=== PATIENT | male | born 1935 | race Hispanic/Latino ===

== ENCOUNTER 2016-11-19 17:41 | Observation (INO) | payer MEDICARE ==
[2016-11-19 17:41] VITALS: PULSE 93
--- NOTE | 2016-11-19 17:57 | ED PDOC ---
Arrival/HPI - General Time Seen by Provider: 11/19/16 17:44 Historian: Patient - History of Present Illness Narrative History of Present Illness (Text): 11/19/16 17:49 A 81 year old male, whose past medical history includes afib on Eliquis, COPD and Crohn's disease, presents to the emergency department complaining of worsening shortness of breath since yesterday. Patient states his symptom is exacerbated on exertion. Patient notes nausea and mild lower abdominal discomfort but denies any fever, chills, vomiting, diarrhea, chest pain, cough or any other complaints. PMD: Dr. Bello [facility] Laboratory Specialist: Dr. Cheung Time/Duration: Other (yesterday) Symptom Course: Worsening Quality: Other Context: Home Past Medical History - Provider Review Nursing Documentation Reviewed: Yes - Infectious Disease Hx of Infectious Diseases: None - Tetanus Immunization Tetanus Immunization: Unknown - Cardiac Hx Cardiac Arrhythmia: Yes (a fib) Hx Hypertension: Yes Hx Pacemaker: No - Pulmonary Hx Asthma: Yes Hx Bronchitis: Yes Hx Chronic Obstructive Pulmonary Disease (COPD): Yes Hx Pneumonia: Yes (10 yrs ago) - Neurological Hx Dizziness: Yes (vertigo) - HEENT Hx HEENT Disorder: Yes (eyeglasses) Hx Blind: No Hx Cataracts: No Hx Deafness: Yes (refuses hearing aids) Hx Difficulty Chewing: No Hx Epistaxis: No Hx Glaucoma: No Hx Macular Degeneration: No - Renal Hx Renal Disorder: No Hx Kidney Stones: Yes (lithotripsy 3/4 yrs ago) Hx Renal Failure: No - Endocrine/Metabolic Hx Endocrine Disorders: No Hx Diabetes Mellitus Type 1: No Hx Diabetes Mellitus Type 2: No Hx Hypothyroidism: No - Hematological/Oncological Hx Blood Disorders: No Hx Cancer: Yes (skin R forehead area frozen 1 1/2 yr ago) - Integumentary Hx Dermatological Disorder: Yes (Skin Cancer 3 years ago, skin area frozen) Hx Basal Cell Carcinoma: No Hx Eczema: No Hx Melanoma: No Hx Psoriasis: No Hx Squamous Cell Carcinoma: No - Musculoskeletal/Rheumatological Hx Arthritis: Yes Hx Falls: No Hx Gout: Yes (1 yr ago) Hx Unsteady Gait: Yes (cane and one person assist) - Gastrointestinal Hx Gastrointestinal Disorders: No Hx Colostomy: Yes (ileostomy) Hx Crohn's Disease: No Hx Diverticulitis: Yes Hx Gall Bladder Disease: Yes (Gallbladder Removed 1964) Hx Gastroesophageal Reflux: Yes (10 years ago) Hx Gastrointestinal Ulcer: No Hx Ileostomy: Yes Hx Liver Failure: No Hx Pancreatitis: No HX Swallowing Problems: No Other/Comment: ulcerative colitis, irritable bowel, 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 - Genitourinary/Gynecological Hx Genitourinary Disorders: No Hx Hematuria: No Hx Incontinence: No Hx Prostate Problems: No Hx Sexually Transmitted Diseases: No Hx Urinary Tract Infection: No - Psychiatric Hx Psychophysiologic Disorder: No Hx Anxiety: No Hx Bipolar Disorder: No Hx Depression: No Hx Emotional Abuse: No Hx Hallucinations: No Hx Panic Disorder: No Hx Post Traumatic Stress Disorder: No Hx Psychosis: No Hx Physical Abuse: No Hx Schizophrenia: No Hx Sexual Abuse: No Hx Substance Use: No - Surgical History Hx Cardiac Catheterization: Yes Hx Cholecystectomy: Yes Other/Comment: 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 - Anesthesia Hx Anesthesia Reactions: No Hx Malignant Hyperthermia: No - Suicidal Assessment Feels Threatened In Home Enviroment: No Family/Social History - Physician Review Nursing Documentation Reviewed: Yes Family/Social History: No Known Family HX Smoking Status: Never Smoked Hx Alcohol Use: No Hx Substance Use: No Hx Substance Use Treatment: No Allergies/Home Meds Allergies/Adverse Reactions: Allergies No Known Allergies Allergy (Verified 11/19/16 17:53) Home Medications: Home Meds Medication Instructions Recorded Confirmed Arformoterol Tartrate [Brovana] 15 mg NEB BID 07/03/14 04/03/16 [place]-3 Fatty Acids/Fish Oil [Fish 1,000 mg PO DAILY 07/03/14 04/03/16 Oil 1,000 mg Capsule] Beclomethasone Dipropionate [Qvar 2 puff IH BID 02/07/16 04/03/16 80 mcg] Calcium Carbonate [Calcium] 600 mg PO BID 02/07/16 04/03/16 Cholecalciferol [Vitamin D] 1,000 unit PO DAILY 02/07/16 04/03/16 Sodium Bicarbonate 650 mg PO BID 02/07/16 04/03/16 Apixaban [Eliquis] 5 mg PO BID 02/09/16 04/03/16 Biotin 1,000 mg PO DAILY 03/01/16 04/03/16 Aspirin [Adult Low Dose Aspirin EC] 81 mg PO DAILY 03/06/16 04/03/16 Losartan [Cozaar] 25 mg PO DAILY 03/06/16 04/03/16 Metoprolol Tartrate [Lopressor] 100 mg PO BID 03/06/16 04/03/16 Review of Systems - Physician Review All systems were reviewed & negative as marked: Yes - Review of Systems Constitutional: absent: Fevers, Night Sweats Respiratory: SOB. absent: Cough Cardiovascular: absent: Chest Pain Gastrointestinal: Abdominal Pain (lower abdominal discomfort), Nausea. absent: Diarrhea, Vomiting Physical Exam Vital Signs Temp Pulse Resp BP Pulse Ox 11/19/16 18:20 16 94 L 11/19/16 17:50 98.4 F 75 16 131/72 94 L Temperature: Afebrile Blood Pressure: Normal Pulse: Regular Respiratory Rate: Tachypneic Appearance: Positive for: Well-Appearing Pain Distress: None Mental Status: Positive for: Alert and Oriented X 3 - Systems Exam Head: Present: Atraumatic, Normocephalic Pupils: Present: PERRL Extroacular Muscles: Present: EOMI Conjunctiva: Present: Normal Mouth: Present: Moist Mucous Membranes Pharnyx: No: ERYTHEMA, EXUDATE, TONSILS ENLARGED Neck: Present: Normal Range of Motion Respiratory/Chest: Present: Good Air Exchange, Rales (to bases bilaterally). No : Respiratory Distress, Accessory Muscle Use Cardiovascular: Present: Normal S1, S2, Irregular Rhythm. No: Murmurs Abdomen: Present: Normal Bowel Sounds, Ostomy Tubes (Colostomy bag). No: Tenderness, Distention, Peritoneal Signs Back: Present: Normal Inspection Upper Extremity: Present: Normal Inspection. No: Cyanosis, Edema Lower Extremity: Present: Normal Inspection. No: Edema, CALF TENDERNESS Neurological: Present: GCS=15, CN II-XII Intact, Speech Normal Skin: Present: Warm, Dry, Normal Color. No: Rashes Psychiatric: Present: Alert, Oriented x 3, Normal Insight, Normal Concentration Medical Decision Making ED Course and Treatment: 11/19/16 17:49 Impression: A 81 year old male with worsening shortness of breath. Tachypneic and hypoxic on arrrival. Plan: -- Chest xray -- EKG -- labs -- duonebs, steroids -- Reassess and disposition Progress Notes: EKG shows atrial fibrillation at 75 BPM. Interpreted by me. Cxray shows hyperinflation consistent with copd and mild pulmonary venous congestion. Trop x 1 negative. BNP elevated. Patient feels improved after duonebs. Patient has known chf, but this acute change is more consistent with COPD. Spoke to Dr. De Leon who accepted patient under his service for tele observation 11/19/16 20:25 - Lab Interpretations Lab Results: 11/19/16 18:15 11/19/16 18:15 Lab Results 11/19/16 18:15: PT 11.2, INR 1.04, APTT 31.7 H 11/19/16 18:15: Sodium 140, Potassium 4.1, Chloride 108 H, Carbon Dioxide 21, Anion Gap 15, BUN 17, Creatinine 0.9, Est GFR ( Amer) > 60, Est GFR (Non- Af Amer) > 60, Random Glucose 100, Calcium 9.0, Phosphorus 3.7, Magnesium 1.6 L , Total Bilirubin 1.3, AST 28, ALT 39, Alkaline Phosphatase 59, Total Creatine Kinase 91, Troponin I < 0.01, NT-Pro-B Natriuret Pep 1920 H, Total Protein 7.3, Albumin 3.9, Globulin 3.4, Albumin/Globulin Ratio 1.1 11/19/16 18:15: WBC 9.4 D, RBC 4.59, Hgb 14.5, Hct 41.5 L, MCV 90.4, MCH 31.6, MCHC 34.9, RDW 12.8, Plt Count 272, MPV 10.2, Gran % 79.8 H, Lymph % (Auto) 10.9 L, [place] % (Auto) 7.4 H, Eos % (Auto) 1.6, Baso % (Auto) 0.3, Gran # 7.49 H , Lymph # 1.0 L, [place] # 0.7 H, Eos # 0.2, Baso # 0.03 I have reviewed the lab results: Yes - RAD Interpretation Radiology Orders: 11/19/16 17:53 CHEST PORTABLE [RAD] Stat - Medication Orders Current Medication Orders: Azithromycin (Zithromax 500mg In Ns) 500 mg in 250 mls @ 167 mls/hr IVPB STAT STA PRN Reason: Protocol Stop: 11/19/16 20:57 Last Admin: 11/19/16 20:07 Dose: 167 mls/hr Discontinued Medications Albuterol/Ipratropium (Duoneb 3 Mg/0.5 Mg (3 Ml) Ud) 3 ml IH STAT STA Stop: 11/19/16 18:28 Last Admin: 11/19/16 18:32 Dose: 3 ml Aspirin (Aspirin Chewable) 324 mg PO STAT STA Stop: 11/19/16 18:27 Last Admin: 11/19/16 18:32 Dose: 324 mg Prednisone (Prednisone Tab) 60 mg PO STAT ONE Stop: 11/19/16 19:29 Last Admin: 11/19/16 20:06 Dose: 60 mg - Scribe Statement The provider has reviewed the documentation as recorded by the Andreea Tierney Provider Scribe Attestation: All medical record entries made by the Andreea were at my direction and personally dictated by me. I have reviewed the chart and agree that the record accurately reflects my personal performance of the history, physical exam, medical decision making, and the department course for this patient. I have also personally directed, reviewed, and agree with the discharge instructions and disposition. Disposition/Present on Arrival - Present on Arrival Any Indicators Present on Arrival: No History of DVT/PE: No History of Uncontrolled Diabetes: No Urinary Catheter: No History Surgical Site Infection Following: None - Disposition Have Diagnosis and Disposition been Completed?: Yes Diagnosis: COPD (chronic obstructive pulmonary disease) Disposition: HOSPITALIZED Disposition Time: 20:24 Patient Plan: Observation Patient Problems: Current Active Problems Problem Status Onset COPD (chronic obstructive pulmonary disease) Acute Condition: GOOD
[2016-11-19] MEDS ORDERED: Albuterol-Ipratrop 3 mg / 0.5 (3 ml) UD IH STA (18:27)
[2016-11-19 18:47] LABS: BASO # 0.03 K/mm3 (0.0-2.0); BASO % 0.3 % (0.0-3.0); EOS # 0.2 (0.0-0.7); EOS % 1.6 % (1.5-5.0); GRAN # 7.49 (1.4-6.5); GRAN % 79.8 % (50.0-68.0); HEMATOCRIT 41.5 % (42.0-52.0); LYMPH % 10.9 % (22.0-35.0); MEAN CELL VOLUME 90.4 fl (80.0-105.0); MEAN CORPUSCULAR HEMOGLOBIN 31.6 pg (25.0-35.0); MEAN CORPUSCULAR HGB CONC 34.9 g/dl (31.0-37.0); MEAN PLATELET VOLUME 10.2 fl (7.0-11.0); MONO # 0.7 (0.1-0.6); MONO % 7.4 % (1.0-6.0); RED CELL DISTRIBUTION WIDTH 12.8 % (11.5-14.5); WHITE BLOOD COUNT 9.4 10^3/ul (4.5-11.0)
[2016-11-19 18:54] LABS: INR 1.04 (0.93-1.08); PARTIAL THROMBOPLASTIN TIME 31.7 Seconds (23.7-30.8)
[2016-11-19 18:58] LABS: ALB/GLOB RATIO 1.1 (1.1-1.8); ALKALINE PHOSPHATASE 59 U/L (38-133); ALT/SGPT 39 U/L (7-56); AST/SGOT 28 U/L (15-59); BILIRUBIN,TOTAL 1.3 mg/dL (0.2-1.3); BLOOD UREA NITROGEN 17 mg/dL (7-21); CARBON DIOXIDE 21 mmol/L (21-33); CHLORIDE 108 mmol/L (98-107); GFR AFRICAN-AMERICAN > 60; GLUCOSE,RANDOM 100 mg/dL (70-110); MAGNESIUM 1.6 mg/dL (1.7-2.2); PHOSPHOROUS 3.7 mg/dL (2.5-4.5); POTASSIUM 4.1 mmol/L (3.6-5.0); SODIUM 140 mmol/L (132-148); TOTAL PROTEIN 7.3 g/dL (5.8-8.3)
[2016-11-19 19:20] LABS: TROPONIN I < 0.01 ng/mL
[2016-11-19] MEDS ORDERED: Azithromycin 500MG/NS 250ml 500 MG/250 ML BAG IVPB STA (19:28)
[2016-11-19] MEDS: Albuterol-Ipratrop 3 mg / 0.5 (3 ml) UD IH SCH (23:49)
[2016-11-20 01:39] VITALS: BMI 26.6
[2016-11-20 06:35] VITALS: RESP 19; TEMP 98.2; O2SAT 96
[2016-11-20] MEDS: Albuterol-Ipratrop 3 mg / 0.5 (3 ml) UD IH SCH (07:46)
--- NOTE | 2016-11-20 08:33 | RAD ---
HISTORY: shortness of breath COMPARISON: 11/03/2014 FINDINGS: LUNGS: No interval consolidation. . The mild interstitial prominence in the mild pulmonary vascular appearance are similar findings. PLEURA: No significant pleural effusion identified, no pneumothorax apparent. CARDIOVASCULAR: Top-normal OSSEOUS STRUCTURES: Thoracic spondylosis. Right shoulder arthrosis VISUALIZED UPPER ABDOMEN: Normal. 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 No interval sun pulmonary venous congestion. The overall interstitial and overall bronchovascular markings are similar appearing
[2016-11-20 09:08] VITALS: BP 101/63
[2016-11-20 11:12] VITALS: PULSE 82
[2016-11-20] MEDS ORDERED: Digoxin 250 mcg (0.25 mg) Tab PO SCH (14:00)
--- NOTE | 2016-11-20 17:17 | CARD ---
APPROVED REPORT EKG Measurement Heart [id number] <Conclusion> Atrial fibrillation with premature ventricular or aberrantly conducted complexes Nonspecific ST and T wave abnormality, probably digitalis effect Abnormal ECG
--- NOTE | 2016-11-21 03:43 | HP ---
CHIEF COMPLAINT AND HISTORY OF PRESENT ILLNESS: This is an 81-year-old male who is coming into the hospital with complaints of shortness of breath. He has a past medical history of Crohn disease, COPD, hypertension and ulcerative colitis. The patient says his breathing was worse when he was ambulating. He was brought in for further evaluation. The patient was given steroids and nebulizer treatments in the ER, he had improvement of his symptoms. There is no fever, no chills, no nausea, no vomiting. No dysuria, frequency, or nocturia. He says his breathing is better. He is able to ambulate. He otherwise feels well. REVIEW OF SYMPTOMS: All the review of symptoms are within normal limits except what is mentioned. ALLERGIES: NO KNOWN DRUG ALLERGIES. HOME MEDICATIONS: Brovana, fish oil, QVAR, calcium with vitamin D, sodium bicarbonate, Eliquis, Biotin, aspirin, losartan, and Lopressor. PAST MEDICAL HISTORY: COPD, hypertension, and ulcerative colitis. PAST SURGICAL HISTORY: Total colectomy with ileostomy. SOCIAL HISTORY: He does not smoke, drink, or use drugs. FAMILY HISTORY: Noncontributory. PHYSICAL EXAMINATION: VITAL SIGNS: Temperature is 98.2, pulse is 62, blood pressure is 120/85, respirations 19, O2 saturation 96%. Height is 5 feet 9 inches, weight is 185 pounds, BMI is 27.3. GENERAL: The patient lying in bed, uncomfortable, and in no acute distress. HEENT: Atraumatic and normocephalic. Anicteric sclerae. Moist mucosa. [place] conjunctivae. No oral lesions. NECK: No JVD, anterior and posterior adenopathy, thyromegaly, or bruits. CARDIOVASCULAR: S1 and S2 regular. No murmur, rubs, or gallop. LUNGS: Clear to auscultation bilaterally. No wheezes, rales, or rhonchi. ABDOMEN: Bowel sounds are positive. Soft, nontender and nondistended. No hepatosplenomegaly. No rebound and no guarding. Positive for ileostomy. EXTREMITIES: No cyanosis, clubbing, or edema. NEUROLOGIC: No facial asymmetry. Tongue is midline. No uvula deviation. Power is 5/5 upper extremity and lower extremity. Sensation intact in upper extremity and lower extremity. PSYCHIATRIC: She is awake, alert and oriented x3. No anxiety or depression. She has normal affect. GENITOURINARY: No CVA tenderness. VASCULAR: 2+ pulses in the carotid pulses and pedal pulses. SKIN: No erythema or nodules SPINE: Shows normal curvature. EXTREMITIES: No Cyanosis and clubbing, no edema. LABORATORY DATA: White count 9.4 and hemoglobin 14.5. Chemistry shows a creatinine of 0.9, proBNP is 1920, troponin is 0.01, and the patient's INR is 1.04. All other labs were reviewed. IMAGING: The patient's chest x-ray done shows no interval infiltrates. The patient's EKG shows a heart rate of 75 with atrial fibrillation, nonspecific ST changes. ASSESSMENT: 1. Acute chronic obstructive pulmonary disease exacerbation, improved. 2. Atrial fibrillation, on Eliquis. 3. Hypertension. 4. Ileostomy. 5. Ulcerative colitis. PLAN: The patient is currently comfortable. He is on aspirin, which will be continued. He is receiving his Eliquis. He is on digoxin for his atrial fibrillation. He is also on metoprolol. The patient had nebulizer treatments. I gave him prednisone, and I gave him Medrol Dosepak to take home for his COPD. He will be discharged home to follow up as an outpatient with Dr. Cheung and Dr. Bello. CONDITION: Stable. ACTIVITIES: Increase as tolerated. Alfredo Boyd MD
== END 2016-11-20 11:03 | disposition home or self-care (01) ==
LOC: ED 17:41 → ERH 19:27 → 2RSO 22:41
PROVIDERS: ADMIT Internal Medicine Nephrology; ATTEND Internal Medicine Nephrology
DX: J44.1 Chronic obstructive pulmonary disease with (acute) exacerbation (principal); I48.91 Unspecified atrial fibrillation; I10 Essential (primary) hypertension; K51.90 Ulcerative colitis, unspecified, without complications; Z79.01 Long term (current) use of anticoagulants; Z93.2 Ileostomy status; Z79.82 Long term (current) use of aspirin
CPT/HCPCS: 71010; 80053; 82550; 83735; 83880; 84100; 84484; 85025; 85610; 85730; 93005; 94640; 96365; 96366; 99285; G0378; J0456

== ENCOUNTER 2018-04-05 16:03 | Inpatient (IN) | payer MEDICARE ==
[2018-04-05] MEDS ORDERED: Morphine 2 mg/ml ISec IVP STA (17:05)
[2018-04-05 17:13] LABS: BASO # 0.06 K/mm3 (0.0-2.0); BASO % 0.6 % (0.0-3.0); EOS # 0.1 (0.0-0.7); EOS % 1.1 % (1.5-5.0); GRAN # 7.54 (1.4-6.5); GRAN % 76.5 % (50.0-68.0); HEMOGLOBIN 14.2 g/dL (14.0-18.0); LYMPH # 1.6 (1.2-3.4); LYMPH % 16.2 % (22.0-35.0); MEAN CELL VOLUME 90.6 fl (80.0-105.0); MEAN CORPUSCULAR HEMOGLOBIN 30.9 pg (25.0-35.0); MEAN CORPUSCULAR HGB CONC 34.1 g/dl (31.0-37.0); MEAN PLATELET VOLUME 10.2 fl (7.0-11.0); MONO # 0.6 (0.1-0.6); MONO % 5.6 % (1.0-6.0); RBC 4.59 10^6/uL (3.5-6.1); WHITE BLOOD COUNT 9.9 10^3/uL (4.5-11.0)
[2018-04-05 17:18] LABS: ALB/GLOB RATIO 1.3 (1.1-1.8); ALBUMIN 4.1 g/dL (3.0-4.8); ALT/SGPT 31 U/L (7-56); AST/SGOT 35 U/L (17-59); BLOOD UREA NITROGEN 19 mg/dL (7-21); CALCIUM 9.2 mg/dL (8.4-10.5); GFR NON-AFRICAN AMERICAN > 60
[2018-04-05 17:29] LABS: TROPONIN I < 0.01 ng/mL
--- NOTE | 2018-04-05 17:47 | ED PDOC ---
Arrival/HPI - General Historian: Patient, Family - History of Present Illness Narrative History of Present Illness (Text): 04/05/18 17:56 82-year-old male presents today with multiple falls today. 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 He denies hitting his head do denies loss of consciousness. Patient states he then continued on his way he went home he had another fall. Patient states he's been feeling dizzy he denies chest pain or shortness of breath. He denies numbness weakness or tingling in the lower extremities no abdominal pain or fevers or chills. Patient states after the second fall he developed severe pain to the left shoulder and is worried that his shoulder is dislocated. Patient is complaining of a tingling sensation in the fingers but denies limited range of motion of the fingers. <Bharati Causey - Last Filed: 04/05/18 20:12> <Zach Garrett - Last Filed: 04/06/18 12:41> - General Chief Complaint: Upper Extremity Problem/Injury Time Seen by Provider: 04/05/18 16:06 Past Medical History - Provider Review Nursing Documentation Reviewed: Yes - Infectious Disease Hx of Infectious Diseases: None - Tetanus Immunization Tetanus Immunization: Unknown - Cardiac Hx Cardiac Disorders: Yes Hx Cardiac Arrhythmia: Yes (a.fib) Hx Hypertension: Yes Hx Pacemaker: Yes - Pulmonary Hx Respiratory Disorders: Yes Hx Asthma: Yes Hx Bronchitis: Yes Hx Chronic Obstructive Pulmonary Disease (COPD): Yes - Neurological Hx Neurological Disorder: Yes Hx Dizziness: Yes - HEENT Hx HEENT Disorder: Yes Hx Deafness: Yes - Renal Hx Renal Disorder: Yes Hx Kidney Stones: Yes - Endocrine/Metabolic Hx Endocrine Disorders: No - Hematological/Oncological Hx Blood Disorders: Yes Hx Cancer: Yes (SKIN) - Integumentary Hx Dermatological Disorder: Yes Other/Comment: SKIN CA - Musculoskeletal/Rheumatological Hx Musculoskeletal Disorders: Yes Hx Arthritis: Yes Hx Falls: Yes Hx Gout: Yes - Gastrointestinal Hx Gastrointestinal Disorders: Yes Hx Colostomy: Yes Hx Diverticulitis: Yes Hx Gall Bladder Disease: Yes Hx Gastroesophageal Reflux: Yes Hx Gastrointestinal Ulcer: Yes - Genitourinary/Gynecological Hx Genitourinary Disorders: No - Psychiatric Hx Psychophysiologic Disorder: No Hx Substance Use: No - Surgical History Hx Cardiac Catheterization: Yes - Anesthesia Hx Anesthesia Reactions: No Hx Malignant Hyperthermia: No - Suicidal Assessment Feels Threatened In Home Enviroment: No <Bharati Causey - Last Filed: 04/05/18 20:12> Family/Social History - Physician Review Nursing Documentation Reviewed: Yes Family/Social History: Unknown Family HX Smoking Status: Never Smoked Hx Alcohol Use: No Hx Substance Use: No Hx Substance Use Treatment: No <Bharati Causey - Last Filed: 04/05/18 20:12> Allergies/Home Meds <Bharati Causey - Last Filed: 04/05/18 20:12> <Zach Garrett - Last Filed: 04/06/18 12:41> Allergies/Adverse Reactions: Allergies No Known Allergies Allergy (Verified 04/05/18 16:19) Home Medications: Home Meds Medication Instructions Recorded Confirmed RX: [place]-3 Fatty Acids/Fish Oil 1,000 mg PO DAILY 07/03/14 04/05/18 [Fish Oil 1,000 mg Capsule] Beclomethasone Dipropionate [Qvar 2 puff IH BID 02/07/16 04/05/18 80 mcg] Calcium Carbonate [Calcium] 500 mg PO BID 02/07/16 04/05/18 Cholecalciferol [Vitamin D] 1,000 unit PO DAILY 02/07/16 04/05/18 Apixaban [Eliquis] 5 mg PO BID 02/09/16 04/05/18 Aspirin [Adult Low Dose Aspirin EC] 81 mg PO DAILY 03/06/16 04/05/18 Losartan [Cozaar] 25 mg PO DAILY 03/06/16 04/05/18 Metoprolol Tartrate [Lopressor] 25 mg PO DAILY 03/06/16 04/05/18 Omeprazole 20 mg PO DAILY 04/05/18 04/05/18 RX: diltiaZEM CD [Cardizem CD] 300 mg PO DAILY 04/05/18 04/05/18 Review of Systems - Review of Systems Constitutional: absent: Fatigue, Fevers Respiratory: absent: SOB, Cough Cardiovascular: absent: Chest Pain, Palpitations Gastrointestinal: absent: Abdominal Pain, Nausea, Vomiting Musculoskeletal: Arthralgias. absent: Back Pain, Neck Pain Skin: absent: Rash, Pruritis, Laceration Neurological: Dizziness. absent: Headache Psychiatric: absent: Anxiety, Depression <Bharati Causey T - Last Filed: 04/05/18 20:12> Physical Exam Vital Signs Reviewed: Yes Vital Signs Temp Pulse Resp BP Pulse Ox 04/05/18 16:30 98.1 F 77 16 133/76 96 04/05/18 16:29 98.1 F 77 16 133/76 96 Temperature: Afebrile Blood Pressure: Normal Pulse: Regular Respiratory Rate: Normal Appearance: Positive for: Well-Appearing, Non-Toxic, Comfortable Pain Distress: None Mental Status: Positive for: Alert and Oriented X 3 - Systems Exam Head: Present: Atraumatic Mouth: Present: Moist Mucous Membranes Neck: Present: Normal Range of Motion. No: MIDLINE TENDERNESS, Paraspinal Tenderness Respiratory/Chest: Present: Clear to Auscultation, Good Air Exchange. No: Respiratory Distress, Accessory Muscle Use, Wheezes, Retracting, Rhonchi Cardiovascular: Present: Regular Rate and Rhythm, Normal S1, S2. No: Murmurs, Peripheal Pulses Present, Tachycardic Abdomen: No: Tenderness, Distention, Rebound, Guarding Back: Present: Normal Inspection. No: Midline Tenderness, Paraspinal Tenderness Upper Extremity: Present: NORMAL PULSES, Tenderness (left shoulder; + ttp over anterior aspect of shoulder; + edema, sensation and distal pulses intact; cap refill <2. sensation intact. ), Swelling, Neurovascularly Intact, Capillary Refill < 2s. No: Normal ROM Lower Extremity: Present: Normal ROM, Tenderness (left knee; + ttp over anterior aspect of knee. limited rom of knee; abrasion over anterior aspect. + edema. no calf tenderness. sensation and distal pulses intact), Swelling, Capillary Refill < 2 s. No: Erythema Neurological: Present: GCS=15, Speech Normal Skin: Present: Warm, Dry, Normal Color Psychiatric: Present: Alert, Oriented x 3 <Bharati Causey T - Last Filed: 04/05/18 20:12> Vital Signs Temp Pulse Resp BP Pulse Ox 04/06/18 00:01 98.7 F 99 H 20 132/91 H 98 04/06/18 00:00 98.7 F 99 H 20 132/91 H 98 04/05/18 23:19 76 18 133/88 98 04/05/18 21:36 18 04/05/18 19:47 76 18 128/80 97 04/05/18 18:00 77 16 130/77 97 04/05/18 16:30 98.1 F 77 16 133/76 96 04/05/18 16:29 98.1 F 77 16 133/76 96 <Zach Garrett - Last Filed: 04/06/18 12:41> Medical Decision Making ED Course and Treatment: 04/05/18 19:20 82-year-old male with multiple falls today. Complaining of dizziness left shoulder pain and left knee pain. CBC within normal limits CMP within normal limits Troponin within normal limits EKG shows atrial fibrillation with PVC at 72 bpm normal axis no ST elevations Chest x-ray shows no infiltrate or effusion pacemaker in place. CAT scan of the head:FINDINGS: BRAIN No acute intraparenchymal hemorrhage. No mass lesion. No CT evidence for acute territorial infarct. No midline shift or extra-axial collections. VENTRICLES: No hydrocephalus. ORBITS: The orbits are unremarkable. SINUSES AND MASTOIDS: The paranasal sinuses and mastoid air cells are clear. BONES: No fracture. SOFT TISSUES: Unremarkable. IMPRESSION: No acute intracranial abnormality. Electronically signed on Apr 05, 2018 7:02:50 PM EST by: Marko Ace M.D., Certified by [facility], Diagnostic Radiology X-ray of the left shoulder shows a impacted fracture of the humeral neck Case was discussed with Dr. Daniels (the patients orthopedist) in depth. He reviewed the images. He advised patient the patient in a sling and have the patient sleep in a sitting position and he'll see the patient in the morning. Case discussed with Dr. Morris in depth excepts observational status admission to telemetry for near syncope with a humeral neck fracture Impression: Near syncope, humeral neck fracture Admit observational status to telemetry Reassessment Condition: Re-examined, Improved - Lab Interpretations Lab Results: 04/05/18 16:55 04/05/18 16:55 Lab Results 04/05/18 16:55: WBC 9.9, RBC 4.59, Hgb 14.2, Hct 41.6 L, MCV 90.6, MCH 30.9, MCHC 34.1, RDW 13.0, Plt Count 229, MPV 10.2, Gran % 76.5 H, Lymph % (Auto) 16.2 L, [place] % (Auto) 5.6, Eos % (Auto) 1.1 L, Baso % (Auto) 0.6, Gran # 7.54 H, Lymph # (Auto) 1.6, [place] # (Auto) 0.6, Eos # (Auto) 0.1, Baso # (Auto) 0.06 04/05/18 16:55: Sodium 138, Potassium 4.1, Chloride 108 H, Carbon Dioxide 21, Anion Gap 13, BUN 19, Creatinine 1.0, Est GFR ( Amer) > 60, Est GFR (Non- Af Amer) > 60, Random Glucose 115 H, Calcium 9.2, Total Bilirubin 0.9, AST 35, ALT 31, Alkaline Phosphatase 55, Lactate Dehydrogenase 565, Total Creatine Kinase 186, Troponin I < 0.01, Total Protein 7.4, Albumin 4.1, Globulin 3.2, Albumin/Globulin Ratio 1.3 - RAD Interpretation Radiology Orders: 04/05/18 16:45 HEAD W/O CONTRAST [CT] Stat 04/05/18 16:46 CHEST ONE VIEW [RAD] Stat 04/05/18 16:47 KNEE WITH PATELLA LEFT 3 VIEW [RAD] Stat SHOULDER LEFT [RAD] Stat - Medication Orders Current Medication Orders: Discontinued Medications Morphine Sulfate (Morphine) 2 mg IVP STAT STA Stop: 04/05/18 17:06 Last Admin: 04/05/18 17:30 Dose: 2 mg MAR Pain Assessment Document 04/05/18 17:30 KV (Rec: 04/05/18 17:31 KV [facility]) Pain Reassessment Is this a pain reassessment? No Sleep Is patient sleeping during reassessment? No Presence of Pain Presence of Pain Yes Pain Scale Used Protocol: PSCALES Pain Scale Used Numeric Location Left, Right or Bilateral Left Pain Location Body Site Shoulder Description Description Constant Intensity of Pain at present 10 IVP Administration Document 04/05/18 17:30 KV (Rec: 04/05/18 17:31 KV [facility]) Charges for Administration # of IVP Administrations 1 Ondansetron HCl (Zofran Inj) 4 mg IVP STAT STA Stop: 04/05/18 17:06 Last Admin: 04/05/18 17:31 Dose: 4 mg IVP Administration Document 04/05/18 17:31 KV (Rec: 04/05/18 17:31 KV [id number]) Charges for Administration # of IVP Administrations 1 <Bharati Causey T - Last Filed: 04/05/18 20:12> - Lab Interpretations Lab Results: PT 13.6 SECONDS (9.4-12.5) H 04/05/18 19:39 INR 1.19 04/05/18 19:39 APTT 29.6 Seconds (25.1-36.5) 04/05/18 19:39 Troponin I < 0.01 ng/mL 04/05/18 16:55 Total Bilirubin 0.9 mg/dL (0.2-1.3) 04/05/18 16:55 AST 35 U/L (17-59) 04/05/18 16:55 ALT 31 U/L (7-56) 04/05/18 16:55 Alkaline Phosphatase 55 U/L (38-126) 04/05/18 16:55 Total Protein 7.4 g/dL (5.8-8.3) 04/05/18 16:55 Albumin 4.1 g/dL (3.0-4.8) 04/05/18 16:55 Globulin 3.2 gm/dL 04/05/18 16:55 Albumin/Globulin Ratio 1.3 (1.1-1.8) 04/05/18 16:55 Urine Color Yellow (YELLOW) 04/06/18 00:30 Urine Appearance Clear (CLEAR) 04/06/18 00:30 Urine pH 6.0 (4.7-8.0) 04/06/18 00:30 Ur Specific [place] >= 1.030 (1.005-1.035) 04/06/18 00:30 Urine Protein Negative mg/dL (<30 mg/dL) 04/06/18 00:30 Urine Glucose (UA) Negative mg/dL (NEGATIVE) 04/06/18 00:30 Urine Ketones Negative mg/dL (NEGATIVE) 04/06/18 00:30 Urine Blood Negative (NEGATIVE) 04/06/18 00:30 Urine Nitrate Negative (NEGATIVE) 04/06/18 00:30 Urine Bilirubin Negative (NEGATIVE) 04/06/18 00:30 Urine Urobilinogen 0.2 E.U./dL (<1 E.U./dL) 04/06/18 00:30 Ur Leukocyte Esterase Negative Marcela/uL (NEGATIVE) 04/06/18 00:30 - RAD Interpretation Radiology Orders: 04/05/18 16:45 HEAD W/O CONTRAST [CT] Stat 04/05/18 16:46 CHEST ONE VIEW [RAD] Stat 04/05/18 16:47 KNEE WITH PATELLA LEFT 3 VIEW [RAD] Stat SHOULDER LEFT [RAD] Stat - Medication Orders Current Medication Orders: Acetaminophen (Tylenol 325mg Tab) 650 mg PO Q4H PRN PRN Reason: Pain, Mild (1-3) Apixaban (Eliquis) 5 mg PO BID [facility]; Protocol Last Admin: 04/06/18 10:18 Dose: Not Given Non-Admin Reason: medication on hold Aspirin (Ecotrin) 81 mg PO DAILY [facility] Last Admin: 04/06/18 10:17 Dose: Not Given Non-Admin Reason: medication on hold Calcium Carbonate (Oscal) 500 mg PO BID [facility] Last Admin: 04/06/18 10:16 Dose: 500 mg Cholecalciferol (Vitamin D) 1,000 intlu PO DAILY [facility] Last Admin: 04/06/18 10:16 Dose: 1,000 intlu Digoxin (Digoxin) 0.125 mg PO DAILY [facility] Diltiazem HCl (Cardizem Cd) 300 mg PO DAILY [facility] Last Admin: 04/06/18 10:16 Dose: 300 mg [facility] Pulse and Blood Pressure Document 04/06/18 10:16 KL (Rec: 04/06/18 10:17 KL [id number]) Pulse Pulse Rate (60-90) 97 Blood Pressure Blood Pressure (100/60-150/90) 133/94 Losartan Potassium (Cozaar) 25 mg PO DAILY [facility] Last Admin: 04/06/18 10:15 Dose: 25 mg MAR Pulse and Blood Pressure Document 04/06/18 10:15 KL (Rec: 04/06/18 10:16 KL [id number]) Pulse Pulse Rate (60-90) 97 Blood Pressure Blood Pressure (100/60-150/90) 133/94 Metoprolol Tartrate (Lopressor) 25 mg PO DAILY [facility] Last Admin: 04/06/18 10:16 Dose: 25 mg MAR Pulse and Blood Pressure Document 04/06/18 10:16 KL (Rec: 04/06/18 10:16 KL [id number]) Pulse Pulse Rate (60-90) 97 Blood Pressure Blood Pressure (100/60-150/90) 133/94 Morphine Sulfate (Morphine) 2 mg IVP Q4 PRN PRN Reason: Pain, severe (8-10) Last Admin: 04/06/18 10:55 Dose: 2 mg [facility] Pain Assessment Document 04/06/18 10:55 KL (Rec: 04/06/18 10:56 KL [id number]) Pain Reassessment Is this a pain reassessment? No Presence of Pain Presence of Pain Yes Pain Scale Used Protocol[facility] Scale Used Numeric Location Left, Right or Bilateral Left Pain Location Body Site Knee Description Intensity of Pain at present 8 Alleviating Factors/Management Medication Techniques Alleviating Factors Medication IVP Administration Document 04/06/18 10:55 KL (Rec: 04/06/18 10:56 [id number] Charges for Administration # of IVP Administrations 1 Re-Assess: [facility] Pain Assessment Document 04/06/18 11:55 KL (Rec: 04/06/18 12:30 KL [id number]) Pain Reassessment Is this a pain reassessment? Yes Presence of Pain Presence of Pain Yes Pain Scale Used Protocol: [facility] Pain Scale Used Numeric Location Left, Right or Bilateral Left Pain Location Body Site Knee Description Intensity of Pain at present 7 Alleviating Factors/Management Medication Techniques Discontinued Medications Bupivacaine HCl (Marcaine 0.5%) 5 ml IJ ONCE ONE Stop: 04/06/18 07:37 Digoxin (Lanoxin) 0.25 mg PO DAILY [facility]EL Last Admin: 04/06/18 10:18 Dose: Not Given Non-Admin Reason: discontinued Methylprednisolone Acetate (Depo-Medrol) 80 mg IM ONCE ONE Stop: 04/06/18 07:37 Morphine Sulfate (Morphine) 2 mg IVP STAT STA Stop: 04/05/18 17:06 Last Admin: 04/05/18 17:30 Dose: 2 mg [facility] Pain Assessment Document 04/05/18 17:30 KV (Rec: 04/05/18 17:31 KV [id number]) Pain Reassessment Is this a pain reassessment? No Sleep Is patient sleeping during reassessment? No Presence of Pain Presence of Pain Yes Pain Scale Used Protocol: [facility] Pain Scale Used Numeric Location Left, Right or Bilateral Left Pain Location Body Site Shoulder Description Description Constant Intensity of Pain at present 10 IVP Administration Document 04/05/18 17:30 KV (Rec: 04/05/18 17:31 KV [id number]) Charges for Administration # of IVP Administrations 1 Ondansetron HCl (Zofran Inj) 4 mg IVP STAT STA Stop: 04/05/18 17:06 Last Admin: 04/05/18 17:31 Dose: 4 mg IVP Administration Document 04/05/18 17:31 KV (Rec: 04/05/18 17:31 KV [id number]) Charges for Administration # of IVP Administrations 1 Tetanus/Reduced Diphtheria/Acell Pertussis (Boostrix Vaccine Inj) 0.5 ml IM .ONCE ONE Stop: 04/05/18 20:09 Last Admin: 04/05/18 20:42 Dose: 0.5 ml Immunization Registry Document 04/05/18 20:42 KV (Rec: 04/05/18 20:42 KV [facility]) [facility]-Date provided 04/05/18 <Zach Garrett - Last Filed: 04/06/18 12:41> - PA / BUSINESS MANAGEMENT SPECIALIST / Resident Statement / has examined the patient and agrees with the treatment plan. <Zach Garrett - Last Filed: 04/06/18 12:41> Disposition/Present on Arrival - Present on Arrival Any Indicators Present on Arrival: No History of DVT/PE: No History of Uncontrolled Diabetes: No Urinary Catheter: No History of Decub. Ulcer: No History Surgical Site Infection Following: None - Disposition Have Diagnosis and Disposition been Completed?: Yes Disposition Time: 19:00 Patient Plan: Observation <Bharati Causey - Last Filed: 04/05/18 20:12> <Zach Garrett - Last Filed: 04/06/18 12:41> - Disposition Diagnosis: Near syncope, Knee pain, Humerus fracture Disposition: HOSPITALIZED Patient Problems: Current Active Problems Problem Status Onset Humerus fracture Acute Knee pain Acute Near syncope Acute Condition: FAIR
[2018-04-05 19:53] LABS: INR 1.19; PARTIAL THROMBOPLASTIN TIME 29.6 Seconds (25.1-36.5); PROTHROMBIN TIME 13.6 SECONDS (9.4-12.5)
[2018-04-05] MEDS ORDERED: TDAP Vaccine 0.5 mL Syr IM ONE (20:08)
[2018-04-05 21:47] VITALS: BMI 26.4
[2018-04-05] MEDS: Morphine 2 mg/ml ISec IVP PRN (23:14)
[2018-04-06 01:17] LABS: URINE BILIRUBIN NEGATIVE (NEGATIVE); URINE BLOOD NEGATIVE (NEGATIVE); URINE GLUCOSE (UA) NEGATIVE (NEGATIVE); URINE LEUKOCYTE ESTERASE NEGATIVE Leu/uL (NEGATIVE); URINE PROTEIN NEGATIVE mg/dL (<30 mg/dL); URINE UROBILINOGEN 0.2 E.U./dL (<1 E.U./dL)
[2018-04-06 01:19] LABS: URINE APPEARANCE CLEAR (CLEAR); URINE COLOR YELLOW (YELLOW)
[2018-04-06] MEDS: Morphine 2 mg/ml ISec IVP PRN ×2 (03:32→10:55)
[2018-04-06] MEDS ORDERED: MethylPREDNISolone Depo 40 mg/ml Inj IM ONE (07:36)
[2018-04-06] MEDS ORDERED: Bupivacaine 0.5% Inj(30mL) IJ ONE (07:36)
--- NOTE | 2018-04-06 08:39 | CT ---
Date of service: 04/05/2018 PROCEDURE: CT HEAD WITHOUT CONTRAST. HISTORY: fall COMPARISON: None available. TECHNIQUE: Axial computed tomography images were obtained through the head/brain without intravenous contrast. Radiation dose: Total exam DLP = 969.85 mGy-cm. This CT exam was performed using one or more of the following dose reduction techniques: Automated exposure control, adjustment of the mA and/or kV according to patient size, and/or use of iterative reconstruction technique. FINDINGS: HEMORRHAGE: No intracranial hemorrhage. BRAIN: No mass effect or edema. No atrophy or chronic microvascular ischemic changes. VENTRICLES: Unremarkable. No hydrocephalus. CALVARIUM: Unremarkable. PARANASAL SINUSES: Unremarkable as visualized. No significant inflammatory changes. MASTOID AIR CELLS: Unremarkable as visualized. No inflammatory changes. OTHER FINDINGS: None. IMPRESSION: Normal CT of the Head.
--- NOTE | 2018-04-06 09:52 | HP ---
DATE OF EXAM: 04/06/2018 CHIEF COMPLAINT AND HISTORY OF PRESENT ILLNESS: This is a 82-year-old male who is coming into the hospital with a fall. The patient says he was walking to pickup his medications, fell on the sidewalk, he landed on his left arm. He was having 10/10 pain, came into the emergency room for further evaluation. He denies any loss of consciousness. No tongue biting. No urinary incontinence. He says that he lost his footing. He did say he had been feeling dizzy, but denies any chest pain or shortness of breath. He has no weakness in the arms or the legs. He has difficulty in moving the left arm because of pain. He has no fevers or chills. No dysuria, frequency. He does have some tingling in the left fingers. He also had swelling in his left knee. All other review of symptoms are within normal limits except as mentioned. ALLERGIES: NO KNOWN DRUG ALLERGIES. SOCIAL HISTORY: Does not smoke, drink or use drugs. PAST MEDICAL HISTORY: Pacemaker, atrial fibrillation, hypertension, ulcerative colitis, kidney stones, hearing impairment. MEDICATIONS: He is on omeprazole, aspirin, calcium, diltiazem, losartan, Eliquis, digoxin, metoprolol, vitamin D. FAMILY HISTORY: Noncontributory. ALLERGIES: NO KNOWN DRUG ALLERGIES. SOCIAL HISTORY He denies smoking, drinking or using drugs. PHYSICAL EXAMINATION: VITAL SIGNS: Temperature is 98, pulse of 90, blood pressure 120/84, respirations 19, O2 saturation 98%. Height is 6 feet, weight is 195 pounds, BMI is 26.4. GENERAL: The patient lying in bed, uncomfortable, and in no acute distress. HEENT: Atraumatic and normocephalic. Anicteric sclerae. Moist mucosa. [place] conjunctivae. No oral lesions. NECK: No JVD, anterior and posterior adenopathy, thyromegaly, or bruits. CARDIOVASCULAR: S1 and S2 regular. No murmur, rubs, or gallop. LUNGS: Clear to auscultation bilaterally. No wheezes, rales, or rhonchi. ABDOMEN: Bowel sounds are positive. Soft, nontender and nondistended. No hepatosplenomegaly. No rebound and no guarding. EXTREMITIES: No cyanosis, clubbing, or edema. In the left arm, he is in a sling. Decreased range of motion because of pain. He can wiggle his toes in the left knee, swollen. NEUROLOGIC: No facial asymmetry. Tongue is midline. No vulva deviation. Power is 5/5 upper extremity and lower extremity. Sensation intact in upper extremity and lower extremity. PSYCHIATRIC: He is awake, alert and oriented x3. No anxiety or depression. He has normal affect. GENITOURINARY: No CVA tenderness. VASCULAR: 2+ pulses in the carotid pulses and pedal pulses. SKIN: No erythema or nodules SPINE: Shows normal curvature. LABORATORY DATA: He has a white count of 9.9, hemoglobin 14.2, platelet count is 229. INR is 1.1. Chemistry shows a sodium 138, potassium is 4.1, creatinine is 1.0. Troponin is 0.01, albumin is 4.1. Urine shows blood that is negative, nitrites are negative, bilirubin is negative. His chest x-ray done. CT of the head shows a normal CT. Chest x-ray shows no infiltrates. He has a pacemaker that was seen. EKG shows atrial fibrillation with PVC, the rate is 52. No ST-T changes. ASSESSMENT: 1. Fall. 2. Left humerus fracture. 3. Pacemaker. 4. Atrial fibrillation, on anticoagulation. 5. Hypertension. PLAN: The patient is brought in as an observation. I will get Cardiology and Neurology evaluation. The patient is on losartan for hypertension. He is on Cardizem for his atrial fibrillation. His atrial fibrillation is under control. He is going to have ortho evaluation. He will most likely need his left knee tapped because of the effusion. The patient does not require surgery. He is going to be on apixaban for his anticoagulation. The patient is on morphine for pain. He is receiving vitamin D for his osteoporosis. He is on a heart-healthy diet. We will wait further input from the consultants. I did advise him that he should go to a subacute rehab. He wishes to go home because he has a that had a stroke and he is her caregiver. I did advise him that he will need significant assistance as well given that he has a left humerus fracture, has limited capability to provide assistance to his . I advised him to speak with his daughter as well as and I did speak to the social service director to speak to him as well. Alfredo Boyd MD Psychiatric # [phone]
[2018-04-06] MEDS ORDERED: Digoxin 250 mcg (0.25 mg) Tab PO SCH (10:00)
--- NOTE | 2018-04-06 10:10 | RAD ---
Date of service: 04/05/2018 PROCEDURE: CHEST RADIOGRAPH, 1 VIEW HISTORY: fall COMPARISON: None available. FINDINGS: LUNGS: Clear. PLEURA: No pneumothorax or pleural fluid seen. CARDIOVASCULAR: No aortic atherosclerotic calcification present. Normal. OSSEOUS STRUCTURES: Degenerative changes in both shoulders VISUALIZED UPPER ABDOMEN: Normal. OTHER FINDINGS: Single lead pacemaker IMPRESSION: No active disease.
--- NOTE | 2018-04-06 10:12 | CON ---
DATE: 04/06/2018 ORTHOPEDIC CONSULT REPORT HISTORY OF PRESENT ILLNESS: The patient is an 82-year-old male who suffered a fall at home and incurred a left proximal humeral fracture, mildly displaced and also has pain in his left knee from osteoarthritis, severe, mostly on the medial side. So, I instructed the ER to put him in a left arm sling. When I saw him this morning on 04/06/2018, I put him in a larger sling. He is quite is on anticoagulation from his heart disease. I aspirated the left knee, took out 60 mL of serosanguineous fluid from the osteoarthritis and fall when he must have contused his left knee. So, then I injected the arthritic left knee with Depo-Medrol and Marcaine and the sling I put in a larger sling, and we both decided not to do surgery because it is compatible to heal with 4-6 weeks as long as he does not put weight on that left arm. He does have underlying osteoarthritis of the left shoulder also. So, we will elevate the head of the bed and he is admitted to the medical service right now. 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 PLAN: We will give him gentle physical therapy. No weight on the left shoulder and to continue sling on the left shoulder and can ambulate with a cane. I will follow him closely. Ayaz Mixon DO
[2018-04-06] MEDS: diltiaZEM 300 mg/24 Hours CD Cap PO SCH (10:16)
[2018-04-06] MEDS: Cholecalciferol 1,000 INTLU TAB PO SCH (10:16)
--- NOTE | 2018-04-06 10:28 | RAD ---
Date of service: 04/05/2018 PROCEDURE: Left Knee Radiographs. HISTORY: Pain. COMPARISON: None. FINDINGS: BONES: There is a bony exostosis measuring 4 cm in length projecting inferiorly and posteriorly from the proximal tibia JOINTS: There is severe joint space narrowing and degeneration in the medial compartment JOINT EFFUSION: None. OTHER FINDINGS: None. IMPRESSION: There is a bony exostosis measuring 4 cm in length projecting inferiorly and posteriorly from the proximal tibia There is severe joint space narrowing and degeneration in the medial compartment
--- NOTE | 2018-04-06 10:30 | RAD ---
Date of service: 04/05/2018 PROCEDURE: Radiographs of the Left Shoulder HISTORY: fall, shoulder pain COMPARISON: 11/26/2016 FINDINGS: BONES: Normal. No fracture. JOINTS: Severe degenerative changes are seen in the glenohumeral joint with flattening of the articular surface and bony sclerosis SOFT TISSUES: Normal. OTHER FINDINGS: None. IMPRESSION: Severe degenerative changes are seen in the glenohumeral joint with flattening of the articular surface and bony sclerosis
--- NOTE | 2018-04-06 10:35 | CARD ---
APPROVED REPORT Date of service: 04/05/2018 EKG Measurement Heart [id number] <Conclusion> Atrial fibrillation with premature ventricular or aberrantly conducted complexes Non Specific ST-T Changes. Abnormal ECG
--- NOTE | 2018-04-06 12:43 | CON ---
DATE: 04/06/2018 REQUESTING PHYSICIAN: Dr. Boyd. CONSULTATION: Recent fall, possible syncope. HISTORY: This is an 82-year-old man with a history of hypertension, atrial fibrillation, LV dysfunction, status post prior ICD implant, who was admitted after a recent fall and left arm trauma. He states that he was getting out of his car when he fell. He is uncertain whether he simply lost his balance or had some presyncope. He denied atrial defibrillator firings. He had a second episode upon returning home, at which time he fell onto his couch. He was brought to the emergency room. X-ray showed evidence of a left humeral head fracture. His arm is currently in a sling. He denies any recent defibrillator firings. He does have moderate LV dysfunction with ejection fraction of 35%, catheterization 2 years ago. He had moderate disease of diagonal branch, but otherwise, no evidence of significant coronary artery disease. He also has a history of moderate mitral and tricuspid regurgitation. PAST MEDICAL HISTORY: His past history is notable for chronic atrial fibrillation, COPD, hypertension and diverticulitis. He has had a prior colectomy in the past as well as cholecystectomy. MEDICATIONS: His current medications include Cardizem CD 300 mg daily, Cozaar 25 mg daily, Ecotrin once daily, Eliquis 5 mg b.i.d., digoxin 0.25 mg daily, metoprolol 25 mg daily, Os-Alexys, and vitamins. ALLERGIES: NONE. SOCIAL HISTORY: He does not smoke or drink. He lives at home with his . He walks with a cane. FAMILY HISTORY: Both parents are from age-related illness. REVIEW OF SYSTEMS: Ten-point review of systems is notable mainly for problems mentioned above. PHYSICAL EXAMINATION: GENERAL: He is an elderly man, who appears somewhat uncomfortable because of arm and knee pain. VITAL SIGNS: His blood pressure is 120/84 with a pulse of 90, atrial fibrillation, respirations are 16. He is afebrile. HEENT: Normocephalic, atraumatic. NECK: Supple. No JVD noted. CHEST: Few scattered rhonchi heard. HEART: PMI displaced laterally with systolic murmur at the left sternal border and apex. The rhythm is irregularly irregular. ABDOMEN: Soft and nontender with no bowel sounds. EXTREMITIES: Left arm is in a sling, and his left upper arm is moderately ecchymotic and swollen. Abrasions noted on his left knee. SKIN: Warm and dry. PSYCHIATRIC: Normal mood and affect. NEUROLOGIC: No gross motor or sensory deficits noted. DIAGNOSTIC DATA: White count is 9.9, hemoglobin and hematocrit 14.2 and 41.6 with a platelet count of 229,000. PT/PTT are 13.6 and 29.6, potassium 4.1, BUN and creatinine of 19 and 1.0, glucose 115. Troponin is negative. CT of the head reportedly showed no acute abnormalities. Chest x-ray reveals an enlarged cardiac silhouette with a single lead ICD system in place. Electrocardiogram revealed atrial fibrillation with nonspecific ST-T abnormalities. IMPRESSION: 1. Recent fall, unclear if this was due to a syncopal event. Left humeral fracture secondary to fall. 2. Moderate left ventricular dysfunction. 3. Status post implantable cardioverter defibrillator implant. RECOMMENDATIONS: Should surgical repair of his humeral fracture be necessary, we need an additional 24 hours for this patient if his Eliquis effect would be advisable. Arrangements will be made for an ICD interrogation while here. Analgesic therapy should continue. Eliquis will be placed on hold to avoid excessive hematoma at the site of his humeral fracture. Consideration may be given to increase his metoprolol dose and reducing his Diltiazem dose if tolerated given his LV dysfunction. His digoxin will be reduced to 0.125 mg daily given his advanced age and reduced clearance. Thank you for this consultation. We would be happy to follow along through his hospital course. Zacarias Reza MD
--- NOTE | 2018-04-06 14:50 | CP.PCM.PCO ---
Physician Communication Note - Physician Communication Note Physician Communication Note: mechanical fall result left humeral fx. recommend SANDI.
--- NOTE | 2018-04-06 19:16 | CON ---
DATE: 04/06/2018 HISTORY OF PRESENT ILLNESS: This is an 82-year-old male with a past medical history of hypertension, atrial fibrillation, LV dysfunction and came here because the patient fell and hit his head and called to evaluate the patient and family is at bedside. The patient also has an ICD implant. The patient fell and had a trauma to the left. The patient also has a left knee drained this morning by Orthopedic and called to evaluate for syncopal episode and the patient is having left arm in the sling. PAST MEDICAL HISTORY: Chronic AFib, COPD, hypertension, diverticulitis, and status post colostomy and cholecystectomy. HOME MEDICATIONS: Cardizem, Cozaar, Ecotrin, Eliquis, digoxin, and metoprolol. ALLERGIES: NO KNOWN DRUG ALLERGIES. SOCIAL HISTORY: Does not smoke and does not drink. PHYSICAL EXAMINATION: HEENT: Normocephalic and atraumatic. NECK: Supple. NEUROLOGIC: Awake and oriented to self. Cranial nerves II through XII are tested. Pupils reactive. Spontaneous movement of the extremities noted except left upper extremity in the sling. Sensory appears intact. Cerebellar gait deferred. IMPRESSION AND PLAN: Recent fall, possibly secondary to syncope and left humeral fracture secondary to fall. The patient also has status post defibrillator. CAT scan of the head was done, which was normal and workup in progress. Continue present management. We will followup. Dax Garnica MD
--- NOTE | 2018-04-06 19:41 | CP.PCM.PN ---
Subjective - Date & Time of Evaluation Date of Evaluation: 04/06/18 Time of Evaluation: 19:19 - Subjective Subjective: House Doc Note: Called for "hunter merging in" This is a 82 year old male with PMH afib, CAD, CHF, is here s/p fall with left humerus fracture, undergoing conservative management. Patient states that his arm is currently under the sling, and it hurts extremely when touched/moved. Patient also had a left knee effusion drained today by Dr Westfall, and states that it hurts as well when moved. Patient's colostomy was being changed, patient also was repositioned in bed to get a rectal temperature. Patient states that his pain at that time was 10/10, sharp, at the left upper arm fracture site and left knee. At that time, patient states that he felt the "hunter move in together." He states that he tries avoid any addicting medications like morphine. The episode lasted for 10-15 mins, denies headache, change in mentation, fevers, chills, nausea, vomiting, chest pain, new focal deficits/sensation changes, blurry vision, pre-syncope, loss of consciousness. Patient states that he currently has no visual disturbances. VS: T 98.1F, HR 91, BP 128/74, RR 19, 95% PE: Neuro: AAOx4. RUE and RLE motor strength 5/5. LUE motor strength limited due to fracture. LLE motor strength limited due to pain from drained knee effusion, + effort noted. Sensation intact throughout. Resp: CTA b/l Cardio: S1 S2, irregularly irregular Abd: soft, nontender, + colostomy bag A/P: Transient visual disturbances, likely pain induced - Encouraged patient to control pain, use tylenol and morphine prn - Fall precautions in place - Discussed with PMD Dr Boyd. Parris Pritchard, PGY2 Objective - Vital Signs/Intake and Output Vital Signs (last 24 hours): Temp Pulse Resp BP Pulse Ox 98.4 F 95 H 19 116/82 98 04/06/18 17:43 04/06/18 17:43 04/06/18 17:43 04/06/18 17:43 04/06/18 06:00 - Medications Medications: Current Medications Acetaminophen (Tylenol 325mg Tab) 650 mg PO Q4H PRN PRN Reason: Pain, Mild (1-3) Apixaban (Eliquis) 5 mg PO BID [facility]; Protocol Last Admin: 04/06/18 10:18 Dose: Not Given Aspirin (Ecotrin) 81 mg PO DAILY [facility] Last Admin: 04/06/18 10:17 Dose: Not Given Calcium Carbonate (Oscal) 500 mg PO BID [facility] Last Admin: 04/06/18 17:51 Dose: 500 mg Cholecalciferol (Vitamin D) 1,000 intlu PO DAILY [facility] Last Admin: 04/06/18 10:16 Dose: 1,000 intlu Digoxin (Digoxin) 0.125 mg PO DAILY [facility] Diltiazem HCl (Cardizem Cd) 300 mg PO DAILY [facility] Last Admin: 04/06/18 10:16 Dose: 300 mg Losartan Potassium (Cozaar) 25 mg PO DAILY [facility] Last Admin: 04/06/18 10:15 Dose: 25 mg Metoprolol Tartrate (Lopressor) 25 mg PO DAILY [facility] Last Admin: 04/06/18 10:16 Dose: 25 mg Morphine Sulfate (Morphine) 2 mg IVP Q4 PRN PRN Reason: Pain, severe (8-10) Last Admin: 04/06/18 10:55 Dose: 2 mg - Labs Labs: 04/05/18 16:55 04/05/18 16:55 PT 13.6 SECONDS (9.4-12.5) H 04/05/18 19:39 INR 1.19 04/05/18 19:39 APTT 29.6 Seconds (25.1-36.5) 04/05/18 19:39
--- NOTE | 2018-04-07 09:36 | CP.PCM.PCO ---
Physician Communication Note - Physician Communication Note Physician Communication Note: patient is medically cleared for SANDI, D/C planning as per CM/SW
[2018-04-07] MEDS: diltiaZEM 300 mg/24 Hours CD Cap PO SCH (10:06)
[2018-04-07] MEDS: Cholecalciferol 1,000 INTLU TAB PO SCH (10:08)
[2018-04-07] MEDS: Digoxin 125 mcg (0.125 mg) Tab PO SCH (10:08)
--- NOTE | 2018-04-07 10:54 | PN ---
DATE: 04/07/2018 SUBJECTIVE: The patient was seen lying in bed telemetry. He continues to have significant left shoulder pain. He states he was given analgesics yesterday and developed some confusion. Defibrillator interrogation was not performed yesterday as requested. He remains in atrial fibrillation with intermittent ventricular pacing. No significant dysrhythmias have been documented. His current medications include Cardizem CD 300 mg daily, Cozaar 25 mg daily, digoxin 0.125 mg daily, metoprolol 25 mg daily. His aspirin and Plavix were on hold at the moment given his recent fall and major injury. OBJECTIVE: GENERAL: He is an elderly man who appears somewhat uncomfortable due to shoulder pain. VITAL SIGNS: His blood pressure is 130/86 with a pulse of 72, in atrial fibrillation, respirations are 14. He is afebrile. HEENT: No JVD. CHEST: Few scattered rhonchi. HEART: PMI displaced laterally with a soft systolic murmur is present at the left sternal border. Rhythm is irregularly irregular. ABDOMEN: Soft, nontender with normoactive bowel sounds. EXTREMITIES: Left arm remains ecchymotic and swollen. DIAGNOSTIC DATA: Morning blood work is pending. IMPRESSION: 1. Recent fall with resultant left humeral fracture, unclear if syncopal event occurred. 2. Moderate left ventricular dysfunction. 3. Status post prior implantable cardioverter defibrillator implant with no clinical evidence of firing; however, interrogation is necessary. RECOMMENDATIONS: 1. Current medications, we will continue for now. Eliquis will eventually be resumed once his left arm appears stable. 2. ICD interrogation will be requested. Consideration will be given to increasing his metoprolol dose and reducing his diltiazem dose given his degree of LV dysfunction and possible transfer to the TCU is being entertained. We will continue to follow and make further recommendations as appropriate. Zacarias Reza MD MTDD
[2018-04-07] MEDS ORDERED: Oxycodone/Acetaminophen 5/325 mg Tab PO PRN (12:27)
--- NOTE | 2018-04-07 14:17 | PN ---
DATE: 04/07/2018 SUBJECTIVE: The patient was having hallucinations last night, he says he is feeling better this morning. He has no complaints of any chest pain or shortness of breath or headaches or dizziness. He does say he has pain in the left shoulder at times. PHYSICAL EXAMINATION: VITAL SIGNS: Temperature is 98.9, pulse of 92, blood pressure 111/72 and respirations 20. GENERAL: The patient is lying in bed, flat, comfortable. HEENT: No oral lesion. Anicteric sclerae. Moist mucosa. NECK: No JVD, adenopathy, or thyromegaly. CARDIOVASCULAR: S1 and S2, regular. No murmurs, rubs, or gallops. LUNGS: Clear to auscultation bilaterally. No wheeze, rales, or rhonchi. ABDOMEN: Bowel sounds are positive, soft, nontender and nondistended. EXTREMITIES: No cyanosis, clubbing or edema. ASSESSMENT: 1. Delirium, improved. 2. Left humerus fracture. 3. Gait dysfunction. 4. Pacemaker. 5. Atrial fibrillation on anticoagulation. 6. Hypertension. 7. Fall. PLAN: The patient is currently on losartan for hypertension. He is on digoxin for his atrial fibrillation. This will be continued. The patient is receiving aspirin daily. He is on his apixaban for his anticoagulation. He is continuing with metoprolol. I will discontinue the patient's morphine at this point because of the delirium. He will be placed on Percocet for pain. He is agreeable to go to the Transitional Care Unit for rehab. I did advise that he should do this because he will have difficulty at home. I did speak to the child welfare social worker and see if the patient can be discharged to subacute rehab tomorrow. I will discontinue the patient's telemetry. He is going to continue with calcium and vitamin D. He is on a heart-healthy diet. He is getting seen by physical therapy. If he is not accepted to subacute rehab, then he may need to go to a different facility. He is interested in going to [facility]. Alfredo Boyd MD
--- NOTE | 2018-04-08 09:40 | PN ---
DATE: 04/08/2018 SUBJECTIVE: The patient has no complaints of any chest pain or shortness of breath. No headaches or dizziness. He initially was admitted to the hospital because he had a fall and had a fracture of his left humerus, it was nonsurgical. He also had left knee effusion that was tapped. He says he does feel better. He does have difficulty in ambulating. He is agreeable to go to transitional care unit if he gets accepted to [facility]. PHYSICAL EXAMINATION: VITAL SIGNS: Temperature is 97.9, pulse of 73, blood pressure is 143/87, respirations 19, O2 saturation 99%. GENERAL: The patient is lying in bed, flat, comfortable. HEENT: No oral lesion. Anicteric sclerae. Moist mucosa. NECK: No JVD, adenopathy, or thyromegaly. CARDIOVASCULAR: S1 and S2, regular. No murmurs, rubs, or gallops. LUNGS: Clear to auscultation bilaterally. No wheeze, rales, or rhonchi. ABDOMEN: Bowel sounds are positive, soft, nontender and nondistended. EXTREMITIES: No cyanosis, clubbing or edema. In the left arm, decreased range of motion because of the fracture. ASSESSMENT: 1. Delirium, improved. 2. Left humerus fracture. 3. Gait dysfunction. 4. Pacemaker. 5. Atrial fibrillation, on anticoagulation. 6. Hypertension. 7. Fall. PLAN: The patient is currently on Cozaar. For blood pressure, he is going to continue with digoxin. The patient is on Eliquis. He is on metoprolol daily. He says his vitamin D causes him to get confused. DISCHARGE: To rehab. CONDITION: Stable. ACTIVITY: Increase as tolerated. Alfredo Boyd MD
[2018-04-08] MEDS: diltiaZEM 300 mg/24 Hours CD Cap PO SCH (10:34)
[2018-04-08] MEDS: Digoxin 125 mcg (0.125 mg) Tab PO SCH (10:38)
--- NOTE | 2018-04-08 12:12 | PN ---
DATE: 04/08/2018 SUBJECTIVE: The patient is seen lying in bed on telemetry. He feels somewhat better. He continues to have pain in his right arm. He has had no significant dysrhythmias noted. ICD check showed no evidence of firings or significant dysrhythmias at the time of his event. CURRENT MEDICATIONS: Include Cardizem 300 mg daily, Cozaar 25 mg daily, digoxin 0.125 mg daily, Ecotrin once daily, metoprolol 25 mg daily, Percocet p.r.n. OBJECTIVE: GENERAL: He is an elderly man who appears comfortable at rest. VITAL SIGNS: His blood pressure is 142/86 with pulse 72, respirations of 16. He is afebrile. HEENT: No JVD. CHEST: Few scattered rhonchi heard. HEART: PMI displaced laterally with soft tones noted. ABDOMEN: Soft, nontender, normoactive bowel sounds. EXTREMITIES: No edema. DIAGNOSTICS DATA: No blood work pending from the morning. IMPRESSION: 1. Status post recent mechanical fall with resultant left humeral fracture. Plans are for conservative management. 2. Chronic atrial fibrillation with controlled rate. 3. Left ventricular dysfunction, clinically stable. 4. Status post implantable cardioverter defibrillator implant. 5. Rest of problems as noted. RECOMMENDATIONS: Current management should continue at this time. The left arm appears stable. Eliquis therapy has been resumed. From a cardiac standpoint, he is stable for transfer to subacute facility once accepted. Outpatient followup will continue. Zacarias Reza MD
--- NOTE | 2018-04-08 12:56 | CP.PCM.PCO ---
Physician Communication Note - Physician Communication Note Physician Communication Note: patient accepted to [facility] as per SW transfer 04/09/17
[2018-04-08 23:00] VITALS: RESP 20
[2018-04-09 08:39] VITALS: TEMP 97.9; O2SAT 97
[2018-04-09] MEDS: diltiaZEM 300 mg/24 Hours CD Cap PO SCH (10:34)
[2018-04-09] MEDS: Digoxin 125 mcg (0.125 mg) Tab PO SCH (10:36)
[2018-04-09 10:47] VITALS: BP 114/67; PULSE 70; PULSE 86
--- NOTE | 2018-04-09 22:04 | DS ---
HISTORY OF PRESENT ILLNESS: This is an 82-year-old male who came into the hospital because of a fall and had left humerus fracture. The patient was also having delirium. His delirium was mostly in the evening time that has improved. He was seen by Orthopedic and it was determined that the patient should get conservative management. The patient has been on anticoagulation for his atrial fibrillation. He has difficulty in transferring and is open to going to subacute rehab. He is scheduled to go to [facility]. He has no complaints of any chest pain. No shortness of breath. No headache or dizziness. PHYSICAL EXAMINATION: VITAL SIGNS: Temperature is 97.9, pulse of 88, blood pressure is 121/81, respirations 20, and O2 saturation 97%. GENERAL: The patient is lying in bed, flat, comfortable. HEENT: No oral lesion. Anicteric sclerae. Moist mucosa. NECK: No JVD, adenopathy, or thyromegaly. CARDIOVASCULAR: S1 and S2, regular. No murmurs, rubs, or gallops. LUNGS: Clear to auscultation bilaterally. No wheeze, rales, or rhonchi. ABDOMEN: Bowel sounds are positive, soft, nontender and nondistended. EXTREMITIES: No cyanosis, clubbing or edema. ASSESSMENT: 1. Left humerus fracture. 2. Gait dysfunction. 3. Delirium improved. 4. Pacemaker. 5. Atrial fibrillation, on anticoagulation. 6. Hypertension. 7. Fall. PLAN: The patient is currently comfortable. Last creatinine was 1. Last hemoglobin was 14.2. He was seen by Cardiology. The patient says his pain is controlled. He is on Eliquis, this will be continued. CONDITION: Stable. ACTIVITY: Increase as tolerated. DISPOSITION: Discharge to [facility]. FOLLOWUP: Follow up with Dr. Pruett in 1-2 weeks after discharge. The patient was also seen by Neurology for evaluation of the fall. Alfredo Boyd MD
== END 2018-04-09 12:50 | DRG 563 ==
LOC: ED 16:03 → ERH 19:04 → 2RNO 23:56 → OBSVTOIN 04-06 12:41 → 5RNO 04-08 15:30
PROVIDERS: ADMIT Internal Medicine Nephrology; ATTEND Internal Medicine Nephrology
PROC: 3E0234Z Introduction of Serum, Toxoid and Vaccine into Muscle, Percutaneous Approach (ICD-10-PCS; principal; 2018-04-05)
DX: S42.292A Other displaced fracture of upper end of left humerus, initial encounter for closed fracture (principal); I25.10 Atherosclerotic heart disease of native coronary artery without angina pectoris; J44.9 Chronic obstructive pulmonary disease, unspecified; I48.2 Chronic atrial fibrillation; I11.0 Hypertensive heart disease with heart failure; M19.012 Primary osteoarthritis, left shoulder; R26.2 Difficulty in walking, not elsewhere classified; M17.12 Unilateral primary osteoarthritis, left knee; I08.1 Rheumatic disorders of both mitral and tricuspid valves; I50.9 Heart failure, unspecified; R41.0 Disorientation, unspecified; R29.6 Repeated falls; H91.90 Unspecified hearing loss, unspecified ear; W18.30XA Fall on same level, unspecified, initial encounter; Z93.3 Colostomy status; Z95.810 Presence of automatic (implantable) cardiac defibrillator; Z79.01 Long term (current) use of anticoagulants; Y92.009 Unspecified place in unspecified non-institutional (private) residence as the place of occurrence of the external cause; Z85.828 Personal history of other malignant neoplasm of skin; Z90.49 Acquired absence of other specified parts of digestive tract; Z23 Encounter for immunization